=== PATIENT | male | born 1960 | race Caucasian/White ===

== ENCOUNTER 2019-10-24 16:02 | Observation (INO) ==
[2019-10-24 17:12] LABS: Basophils # 0.1 K/mcL (0.0-0.2); Basophils % 0.7 %; Eosinophils # 0.1 K/mcL (0.0-0.6); Eosinophils % 1.2 %; Hematocrit 42.8 % (37.5-50.1); Hemoglobin 13.4 g/dL (12.9-16.9); Immature Granulocytes % 0.4 % (0-4); Lymphocytes # 1.6 K/mcL (0.6-4.6); Lymphocytes % 13.6 %; Mean Corpuscular HGB Conc 31.3 g/dL (31.6-35.5); Mean Corpuscular Hemoglobin 28.5 pg (28.0-33.3); Mean Corpuscular Volume 90.9 fL (83.0-100.0); Mean Platelet Volume 10.4 fL (9.4-12.4); Monocytes # 0.9 K/mcL (0.0-1.3); Monocytes % 7.5 %; Neutrophils # 8.7 K/mcL (1.6-8.9); Platelet Count 393 K/mcL (140-400); Red Blood Count 4.71 M/mcL (4.19-5.50); Segmented Neutrophils % 76.6 %; White Blood Count 11.4 K/mcL (4.3-11.1)
[2019-10-24 17:19] LABS: INR 1.3
[2019-10-24 17:22] LABS: Activated Partial Thrombo Time 32.8 Seconds (26.0-36.0)
[2019-10-24 17:34] LABS: Alanine Aminotransferase 24 Units/L (7-52); Albumin 3.8 g/dL (3.5-5.7); Albumin/Globulin Ratio 1.5 (1.1-2.2); Alkaline Phosphatase 65 Units/L (34-104); Aspartate Amino Transferase 15 Units/L (13-39); BUN/Creatinine Ratio 17 (6-26); Bilirubin,Total 0.6 mg/dL (0.3-1.0); Blood Urea Nitrogen 15 mg/dL (8-23); Calcium 8.7 mg/dL (8.6-10.3); Carbon Dioxide 27 mEq/L (23-29); Chloride 100 mEq/L (98-107); Globulin 2.5 g/dL (2.4-3.5); Glucose 112 mg/dL (70-105); Osmolality,Calculated 284 (280-300); Sodium 136 mEq/L (136-145); Total Protein 6.3 g/dL (6.4-8.9); Troponin I 0.14 ng/mL (< 0.04); eGFR For African Americans > 60 (> 60); eGFR For Non-African Americans > 60 (> 60)
[2019-10-24] MEDS ORDERED: *HR* Heparin 5,000 UNIT/ML VIAL IVP ONE (17:38)
[2019-10-24] MEDS ORDERED: *HR* Heparin 5,000 UNIT/ML VIAL IVP PRN (17:38)
[2019-10-24] MEDS ORDERED: *HR* Promethazine 25 MG/ML VIAL IVP PRN (17:42)
[2019-10-24] MEDS ORDERED: Mag Hydrox/Al Hydrox/Simeth 30 ML UDC PO PRN (17:42)
[2019-10-24] MEDS ORDERED: Acetaminophen 325 MG TABLET PO PRN (17:42)
[2019-10-24] MEDS ORDERED: MOM Conc 10 ML UD.LIQ PO PRN (17:42)
[2019-10-24] MEDS ORDERED: Ondansetron 4 MG/2 ML VIAL IVP PRN (17:42)
[2019-10-24] MEDS ORDERED: *HR* HYDROcodone/Acet 5/325 mg TABLET PO PRN (17:42)
[2019-10-24] MEDS ORDERED: Naloxone 0.4 MG/ML INJ IVP PRN (17:42)
[2019-10-24] MEDS ORDERED: Perflutren Lipid Microsphere 1.3 ML in 0.9 % Sodium Chloride 8.7 ML IVP PRN (17:44)
[2019-10-24 18:04] LABS: Heparin anti-factor XA UFH < 0.04 IU/mL (0.30-0.70)
[2019-10-24] MEDS ORDERED: Aspirin 325 MG TABLET PO ONE (19:00)
[2019-10-24] MEDS: Heparin 25,000 UNIT/250 ML D5W 25,000 UNIT/250 ML IV.SOLN IVC SCH (19:28)
[2019-10-24] MEDS: 0.9 % Sodium Chloride 1,000 ML IVC SCH (19:35)
[2019-10-24] MEDS: DilTIAZem SR (12hr) 60 MG CAP.ER.12H PO SCH (22:05)
[2019-10-25 02:31] LABS: Basophils # 0.1 K/mcL (0.0-0.2); Basophils % 0.9 %; Eosinophils # 0.2 K/mcL (0.0-0.6); Eosinophils % 1.7 %; Hematocrit 42.3 % (37.5-50.1); Hemoglobin 12.9 g/dL (12.9-16.9); Immature Granulocytes % 0.6 % (0-4); Lymphocytes # 1.9 K/mcL (0.6-4.6); Lymphocytes % 19.2 %; Mean Corpuscular HGB Conc 30.5 g/dL (31.6-35.5); Mean Corpuscular Volume 91.8 fL (83.0-100.0); Mean Platelet Volume 10.3 fL (9.4-12.4); Monocytes # 0.9 K/mcL (0.0-1.3); Monocytes % 9.4 %; Neutrophils # 6.7 K/mcL (1.6-8.9); Platelet Count 354 K/mcL (140-400); Red Blood Count 4.61 M/mcL (4.19-5.50); Red Cell Distribution Width 14.2 % (11.5-14.5); Segmented Neutrophils % 68.2 %; White Blood Count 9.8 K/mcL (4.3-11.1)
[2019-10-25 02:48] LABS: BUN/Creatinine Ratio 19 (6-26); Blood Urea Nitrogen 16 mg/dL (8-23); Calcium 8.7 mg/dL (8.6-10.3); Carbon Dioxide 26 mEq/L (23-29); Chloride 102 mEq/L (98-107); Chol/HDL Ratio 5.9 (0-4.9); Cholesterol 159 mg/dL (< 200); Glucose 103 mg/dL (70-105); HDL Cholesterol 27 mg/dL (40-59); LDL Cholesterol,Calculated 113 mg/dL (< 100); Magnesium 2.3 mg/dL (1.6-2.6); Osmolality,Calculated 285 (280-300); Phosphorous 4.2 mg/dL (2.7-4.5); Potassium 4.3 mEq/L (3.5-5.1); Sodium 137 mEq/L (136-145); Triglycerides 94 mg/dL (< 150); eGFR For African Americans > 60 (> 60); eGFR For Non-African Americans > 60 (> 60)
[2019-10-25] MEDS: *HR* Heparin 5,000 UNIT/ML VIAL IVP PRN ×2 (02:50→17:39)
[2019-10-25 03:02] LABS: Thyroid Stimulating Hormone 2.828 mcIU/mL (0.340-5.600)
[2019-10-25] MEDS: 0.9 % Sodium Chloride 1,000 ML IVC SCH (06:10)
[2019-10-25] MEDS: DilTIAZem SR (12hr) 60 MG CAP.ER.12H PO SCH (07:43)
[2019-10-25] MEDS: carvediloL 25 MG TABLET PO SCH ×2 (14:02→21:27)
[2019-10-25] MEDS ORDERED: carvediloL 25 MG TABLET PO SCH (17:00)
[2019-10-25] MEDS: Heparin 25,000 UNIT/250 ML D5W 25,000 UNIT/250 ML IV.SOLN IVC SCH (17:38)
[2019-10-26 00:43] LABS: Basophils # 0.1 K/mcL (0.0-0.2); Basophils % 0.6 %; Eosinophils # 0.2 K/mcL (0.0-0.6); Hemoglobin 12.4 g/dL (12.9-16.9); Immature Granulocytes % 0.2 % (0-4); Lymphocytes % 19.9 %; Mean Corpuscular Hemoglobin 29.3 pg (28.0-33.3); Mean Corpuscular Volume 94.6 fL (83.0-100.0); Mean Platelet Volume 10.6 fL (9.4-12.4); Monocytes # 0.9 K/mcL (0.0-1.3); Monocytes % 8.8 %; Platelet Count 299 K/mcL (140-400); Red Blood Count 4.23 M/mcL (4.19-5.50); Red Cell Distribution Width 14.3 % (11.5-14.5); Segmented Neutrophils % 68.5 %; White Blood Count 10.2 K/mcL (4.3-11.1)
[2019-10-26 01:03] LABS: Blood Urea Nitrogen 15 mg/dL (8-23); Carbon Dioxide 27 mEq/L (23-29); Chloride 103 mEq/L (98-107); Potassium 4.3 mEq/L (3.5-5.1); Sodium 137 mEq/L (136-145)
[2019-10-26 01:04] LABS: BUN/Creatinine Ratio 18 (6-26); Calcium 8.4 mg/dL (8.6-10.3); Glucose 117 mg/dL (70-105); Magnesium 2.3 mg/dL (1.6-2.6); Osmolality,Calculated 286 (280-300); Phosphorous 3.9 mg/dL (2.7-4.5); eGFR For African Americans > 60 (> 60); eGFR For Non-African Americans > 60 (> 60)
[2019-10-26] MEDS: Regadenoson 0.4 MG/5 ML SYRINGE IVP ONE ×2 (08:05→08:26)
[2019-10-26] MEDS: carvediloL 25 MG TABLET PO SCH ×2 (08:36→16:24)
[2019-10-26] MEDS ORDERED: Aminoglycoside Consult 1 EACH MC ONE (11:28)
[2019-10-26] MEDS ORDERED: 0.9 % Sodium Chloride 2,000 ML ONE (12:16)
[2019-10-26] MEDS ORDERED: ISOVUE-370 200 ML INFUS..BTL ONE (12:16)
[2019-10-26] MEDS ORDERED: *HR* Heparin 10,000 UNIT/10 ML VIAL ONE (12:16)
[2019-10-26] MEDS ORDERED: Nitroglycerin 1,000 MCG/10 ML VIAL IV ONE (12:16)
[2019-10-26] MEDS ORDERED: Heparin 1,000 UNITS/500 mL 500 ML ONE (12:16)
[2019-10-26] MEDS ORDERED: *HR* Midazolam HCl 2 MG/2 ML VIAL ONE (12:45)
[2019-10-26] MEDS ORDERED: *HR* FentaNYL (PF) 100 MCG/2 ML VIAL ONE (12:45)
[2019-10-26] MEDS: Heparin 25,000 UNIT/250 ML D5W 25,000 UNIT/250 ML IV.SOLN IVC SCH (14:56)
[2019-10-26] MEDS ORDERED: Warfarin perPT PO PRN (18:00)
[2019-10-26] MEDS ORDERED: *HR* Warfarin 5 MG TABLET PO ONE (18:00)
[2019-10-27 06:43] LABS: INR 1.3; Prothrombin Time 14.5 Seconds (9.4-12.1)
[2019-10-27 07:03] LABS: BUN/Creatinine Ratio 17 (6-26); Blood Urea Nitrogen 15 mg/dL (8-23); Calcium 8.6 mg/dL (8.6-10.3); Carbon Dioxide 28 mEq/L (23-29); Chloride 99 mEq/L (98-107); Glucose 110 mg/dL (70-105); Osmolality,Calculated 279 (280-300); Potassium 4.2 mEq/L (3.5-5.1); Sodium 134 mEq/L (136-145); eGFR For African Americans > 60 (> 60); eGFR For Non-African Americans > 60 (> 60)
[2019-10-27] MEDS: carvediloL 25 MG TABLET PO SCH (07:23)
[2019-10-27 07:50] VITALS: BP 139/76
[2019-10-27] MEDS ORDERED: lisinopriL 5 MG TABLET PO SCH (09:00)
[2019-10-27] MEDS ORDERED: Aspirin 81 MG TAB.CHEW PO SCH (09:15)
== END 2019-10-27 11:29 | disposition home or self-care (01) ==
LOC: EMEROOARM 16:02 → 2ANU 16:02 → SUATTDRO 19:23 → 2ANU 19:56
PROVIDERS: ADMIT Internal Medicine; ATTEND Family Medicine

== ENCOUNTER 2019-12-27 14:33 | Inpatient (IN) ==
[2019-12-27 15:39] LABS: Bilirubin,Urine Negative (Negative); Blood,Urine Negative (Negative); Clarity,Urine Clear (Clear); Color,Urine Light-Yellow (Yellow); Glucose,Urine (UA) Normal (Normal); Ketones,Urine Negative (Negative); Leukocyte Esterase,Urine Negative (Negative); Nitrite,Urine Negative (Negative); PH,Urine 5.5 pH Units (5.0-8.0); Protein,Urine Negative (Neg-Trace); Specific Gravity,Urine 1.018 (1.010-1.025); Urobilinogen,Urine Normal (Normal)
[2019-12-27 15:44] LABS: Basophils # 0.1 K/mcL (0.0-0.2); Basophils % 0.5 %; Eosinophils # 0.8 K/mcL (0.0-0.6); Eosinophils % 6.3 %; Hematocrit 38.1 % (37.5-50.1); Hemoglobin 11.3 g/dL (12.9-16.9); Immature Granulocytes % 0.5 % (0-4); Lymphocytes # 0.9 K/mcL (0.6-4.6); Lymphocytes % 6.5 %; Mean Corpuscular HGB Conc 29.7 g/dL (31.6-35.5); Mean Corpuscular Hemoglobin 25.4 pg (28.0-33.3); Mean Corpuscular Volume 85.6 fL (83.0-100.0); Mean Platelet Volume 10.4 fL (9.4-12.4); Monocytes # 1.4 K/mcL (0.0-1.3); Monocytes % 10.3 %; Platelet Count 309 K/mcL (140-400); Red Blood Count 4.45 M/mcL (4.19-5.50); Red Cell Distribution Width 15.9 % (11.5-14.5); Segmented Neutrophils % 75.9 %; White Blood Count 13.2 K/mcL (4.3-11.1)
[2019-12-27 15:56] LABS: Activated Partial Thrombo Time 42.1 Seconds (26.0-36.0); Prothrombin Time 34.2 Seconds (9.4-12.1)
[2019-12-27 16:10] LABS: Alanine Aminotransferase 18 Units/L (7-52); Albumin 3.4 g/dL (3.5-5.7); Albumin/Globulin Ratio 1.1 (1.1-2.2); Alkaline Phosphatase 179 Units/L (34-104); Aspartate Amino Transferase 14 Units/L (13-39); BUN/Creatinine Ratio 25 (6-26); Bilirubin,Direct 0.3 mg/dL (0.0-0.2); Bilirubin,Indirect 0.9 mg/dL (0.0-1.0); Bilirubin,Total 1.2 mg/dL (0.3-1.0); Blood Urea Nitrogen 20 mg/dL (8-23); Carbon Dioxide 31 mEq/L (23-29); Chloride 98 mEq/L (98-107); Globulin 3.2 g/dL (2.4-3.5); Glucose 102 mg/dL (70-105); Osmolality,Calculated 283 (280-300); Potassium 4.5 mEq/L (3.5-5.1); Sodium 135 mEq/L (136-145); Total Protein 6.6 g/dL (6.4-8.9); Troponin I 0.04 ng/mL (< 0.04); eGFR For African Americans > 60 (> 60); eGFR For Non-African Americans > 60 (> 60)
[2019-12-27] MEDS ORDERED: Aspirin 325 MG TABLET PO ONE (16:38)
[2019-12-27] MEDS ORDERED: Furosemide 40 MG/4 ML VIAL IVP ONE (16:38)
[2019-12-27] MEDS ORDERED: Ondansetron 4 MG/2 ML VIAL IVP PRN (17:04)
[2019-12-27] MEDS ORDERED: Naloxone 0.4 MG/ML INJ IVP PRN (17:04)
[2019-12-27] MEDS ORDERED: Albuterol 2.5 MG/3 ML NEBULIZER IH PRN (17:06)
[2019-12-27] MEDS ORDERED: Warfarin perPT PO PRN (18:00)
[2019-12-27] MEDS ORDERED: *HR* Warfarin 3 MG TABLET PO ONE (18:00)
[2019-12-27] MEDS: Azithromycin 250 MG TABLET PO SCH (20:03)
[2019-12-27] MEDS: carvediloL 25 MG TABLET PO SCH (20:03)
[2019-12-27] MEDS: predniSONE 20 MG TABLET PO SCH (20:03)
[2019-12-27 20:37] LABS: Adenovirus Not Detected (Not Detect); Bordetella Pertussis Not Detected (Not Detect); Chlamydophila pneumoniae Not Detected (Not Detect); Coronavirus 229E Not Detected (Not Detect); Coronavirus HKU1 Not Detected (Not Detect); Coronavirus NL63 Not Detected (Not Detect); Coronavirus OC43 Not Detected (Not Detect); Human Metapneumovirus Not Detected (Not Detect); Human Rhinovirus/Enterovirus Not Detected (Not Detect); Influenza A Subtype 2009 H1 Not Detected (Not Detect); Influenza B Not Detected (Not Detect); Mycoplasma pneumoniae Not Detected (Not Detect); Parainfluenza Virus 1 Not Detected (Not Detect); Parainfluenza Virus 2 Not Detected (Not Detect); Parainfluenza Virus 3 Not Detected (Not Detect); Parainfluenza Virus 4 Not Detected (Not Detect); Respiratory Syncytial Virus Not Detected (Not Detect); SARS-CoV-2 Not Detected (Not Detect)
[2019-12-27] MEDS: Furosemide 20 MG/2 ML VIAL IVP SCH (21:12)
[2019-12-27] MEDS: Albuterol 2.5 MG/3 ML NEBULIZER IH SCH ×2 (21:42→23:40)
[2019-12-28] MEDS: Albuterol 2.5 MG/3 ML NEBULIZER IH SCH ×6 (03:46→23:59)
[2019-12-28 06:37] LABS: Basophils % 0.3 %; Eosinophils % 0.4 %; Hematocrit 35.3 % (37.5-50.1); Hemoglobin 10.4 g/dL (12.9-16.9); Immature Granulocytes % 0.4 % (0-4); Lymphocytes # 0.4 K/mcL (0.6-4.6); Lymphocytes % 5.5 %; Mean Corpuscular HGB Conc 29.5 g/dL (31.6-35.5); Mean Corpuscular Hemoglobin 26.1 pg (28.0-33.3); Mean Corpuscular Volume 88.7 fL (83.0-100.0); Mean Platelet Volume 10.9 fL (9.4-12.4); Monocytes # 0.3 K/mcL (0.0-1.3); Monocytes % 3.4 %; Neutrophils # 7.2 K/mcL (1.6-8.9); Platelet Count 208 K/mcL (140-400); Red Blood Count 3.98 M/mcL (4.19-5.50); Red Cell Distribution Width 16.1 % (11.5-14.5)
[2019-12-28 06:51] LABS: BUN/Creatinine Ratio 30 (6-26); Blood Urea Nitrogen 19 mg/dL (8-23); Calcium 8.8 mg/dL (8.6-10.3); Carbon Dioxide 28 mEq/L (23-29); Chloride 97 mEq/L (98-107); Glucose 102 mg/dL (70-105); Osmolality,Calculated 278 (280-300); Potassium 4.4 mEq/L (3.5-5.1); Sodium 133 mEq/L (136-145); eGFR For African Americans > 60 (> 60); eGFR For Non-African Americans > 60 (> 60)
[2019-12-28 07:35] LABS: INR 3.1; Prothrombin Time 35.1 Seconds (9.4-12.1)
[2019-12-28] MEDS: carvediloL 25 MG TABLET PO SCH ×2 (09:23→16:52)
[2019-12-28] MEDS: lisinopriL 5 MG TABLET PO SCH (09:24)
[2019-12-28] MEDS: Furosemide 20 MG/2 ML VIAL IVP SCH (09:24)
[2019-12-28] MEDS: Azithromycin 250 MG TABLET PO SCH (09:24)
[2019-12-28] MEDS: Aspirin 81 MG TAB.CHEW PO SCH (09:24)
[2019-12-28] MEDS: Spironolactone 25 MG TABLET PO SCH (09:24)
[2019-12-28] MEDS: predniSONE 20 MG TABLET PO SCH (09:25)
[2019-12-28] MEDS: Furosemide 40 MG/4 ML VIAL IVP SCH (16:53)
[2019-12-28] MEDS ORDERED: *HR* Warfarin 3 MG TABLET PO ONE ×2 (18:00)
[2019-12-29 01:36] LABS: Basophils % 0.1 %; Eosinophils # 0.2 K/mcL (0.0-0.6); Eosinophils % 1.5 %; Hemoglobin 10.8 g/dL (12.9-16.9); Immature Granulocytes % 0.6 % (0-4); Lymphocytes # 0.9 K/mcL (0.6-4.6); Lymphocytes % 6.8 %; Mean Corpuscular HGB Conc 30.9 g/dL (31.6-35.5); Mean Corpuscular Hemoglobin 25.8 pg (28.0-33.3); Mean Corpuscular Volume 83.7 fL (83.0-100.0); Mean Platelet Volume 10.3 fL (9.4-12.4); Monocytes # 1.3 K/mcL (0.0-1.3); Monocytes % 10.5 %; Neutrophils # 10.1 K/mcL (1.6-8.9); Platelet Count 295 K/mcL (140-400); Red Blood Count 4.18 M/mcL (4.19-5.50); Red Cell Distribution Width 15.9 % (11.5-14.5); Segmented Neutrophils % 80.5 %
[2019-12-29 01:37] LABS: White Blood Count 12.6 K/mcL (4.3-11.1)
[2019-12-29 01:42] LABS: INR 3.6; Prothrombin Time 41.5 Seconds (9.4-12.1)
[2019-12-29 01:57] LABS: BUN/Creatinine Ratio 30 (6-26); Blood Urea Nitrogen 24 mg/dL (8-23); Calcium 8.8 mg/dL (8.6-10.3); Carbon Dioxide 30 mEq/L (23-29); Chloride 95 mEq/L (98-107); Glucose 129 mg/dL (70-105); Osmolality,Calculated 282 (280-300); Potassium 4.2 mEq/L (3.5-5.1); Sodium 133 mEq/L (136-145); eGFR For African Americans > 60 (> 60); eGFR For Non-African Americans > 60 (> 60)
[2019-12-29] MEDS: Albuterol 2.5 MG/3 ML NEBULIZER IH SCH ×6 (03:16→23:52)
[2019-12-29] MEDS: Furosemide 40 MG/4 ML VIAL IVP SCH ×2 (05:35→16:07)
[2019-12-29] MEDS: carvediloL 25 MG TABLET PO SCH ×2 (08:20→16:07)
[2019-12-29] MEDS: Azithromycin 250 MG TABLET PO SCH (08:20)
[2019-12-29] MEDS: Spironolactone 25 MG TABLET PO SCH (08:21)
[2019-12-29] MEDS: lisinopriL 5 MG TABLET PO SCH (08:21)
[2019-12-29] MEDS: predniSONE 20 MG TABLET PO SCH (08:21)
[2019-12-29] MEDS: Aspirin 81 MG TAB.CHEW PO SCH (08:21)
[2019-12-30] MEDS: Albuterol 2.5 MG/3 ML NEBULIZER IH SCH ×3 (03:38→11:18)
[2019-12-30 05:04] LABS: INR 2.7; Prothrombin Time 30.6 Seconds (9.4-12.1)
[2019-12-30] MEDS: Furosemide 40 MG/4 ML VIAL IVP SCH (05:07)
[2019-12-30] MEDS: Spironolactone 25 MG TABLET PO SCH (07:56)
[2019-12-30] MEDS: lisinopriL 5 MG TABLET PO SCH (07:56)
[2019-12-30] MEDS: predniSONE 20 MG TABLET PO SCH (07:56)
[2019-12-30] MEDS: carvediloL 25 MG TABLET PO SCH (07:57)
[2019-12-30] MEDS: Aspirin 81 MG TAB.CHEW PO SCH (07:57)
[2019-12-30] MEDS ORDERED: Azithromycin 250 MG TABLET PO SCH (09:00)
[2019-12-30 11:15] VITALS: BP 119/77
== END 2019-12-30 13:00 | disposition home or self-care (01) | DRG 292 ==
LOC: 2ANU 14:33 → EMEROOARM 14:33 → SUATTDRO 19:32 → 2ANU 21:11
PROVIDERS: ADMIT Internal Medicine; ATTEND Internal Medicine

== ENCOUNTER 2022-01-22 15:31 | Observation (INO) ==
[2022-01-22] MEDS ORDERED: Iopamidol - 370 500 ML MLS IVP ONE (17:33)
[2022-01-22 17:50] LABS: Basophils # 0.1 K/mcL (0.0-0.2); Basophils % 0.4 %; Eosinophils # 0.2 K/mcL (0.0-0.6); Eosinophils % 1.3 %; Hematocrit 46.1 % (37.5-50.1); Hemoglobin 13.8 g/dL (12.9-16.9); Immature Granulocytes % 0.4 % (0-4); Lymphocytes # 1.6 K/mcL (0.6-4.6); Lymphocytes % 13.4 %; Mean Corpuscular HGB Conc 29.9 g/dL (31.6-35.5); Mean Corpuscular Volume 86.8 fL (83.0-100.0); Mean Platelet Volume 10.2 fL (9.4-12.4); Monocytes # 1.1 K/mcL (0.0-1.3); Monocytes % 9.7 %; Neutrophils # 8.7 K/mcL (1.6-8.9); Platelet Count 296 K/mcL (140-400); Red Blood Count 5.31 M/mcL (4.19-5.50); Red Cell Distribution Width 14.9 % (11.5-14.5); Segmented Neutrophils % 74.8 %; White Blood Count 11.6 K/mcL (4.3-11.1)
[2022-01-22 18:08] LABS: Potassium 4.6 mEq/L (3.5-5.1)
[2022-01-22 18:10] LABS: INR 3.1; Prothrombin Time 33.8 Seconds (9.4-12.1)
[2022-01-22 18:13] LABS: Activated Partial Thrombo Time 43.7 Seconds (26.0-36.0)
[2022-01-22] MEDS ORDERED: *HR* OxyCODONE Immed Rel 5 MG TABLET PO PRN (19:45)
[2022-01-22] MEDS ORDERED: Melatonin 3 MG TABLET PO PRN (19:45)
[2022-01-22] MEDS ORDERED: Acetaminophen 325 MG TABLET PO PRN (19:45)
[2022-01-22] MEDS ORDERED: *HR* HYDROcodone/Acet 5/325 mg TABLET PO PRN (19:45)
[2022-01-22] MEDS ORDERED: Naloxone 0.4 MG/ML INJ IVP PRN (19:45)
[2022-01-22] MEDS ORDERED: Ondansetron 4 MG/2 ML VIAL IVP PRN (19:45)
[2022-01-23 05:17] LABS: Basophils # 0.1 K/mcL (0.0-0.2); Basophils % 0.4 %; Eosinophils # 0.2 K/mcL (0.0-0.6); Eosinophils % 1.6 %; Hematocrit 44.9 % (37.5-50.1); Hemoglobin 13.5 g/dL (12.9-16.9); Immature Granulocytes % 0.3 % (0-4); Lymphocytes # 1.4 K/mcL (0.6-4.6); Lymphocytes % 11.5 %; Mean Corpuscular HGB Conc 30.1 g/dL (31.6-35.5); Mean Corpuscular Hemoglobin 25.7 pg (28.0-33.3); Mean Corpuscular Volume 85.5 fL (83.0-100.0); Mean Platelet Volume 10.7 fL (9.4-12.4); Monocytes # 1.1 K/mcL (0.0-1.3); Monocytes % 9.7 %; Platelet Count 291 K/mcL (140-400); Red Blood Count 5.25 M/mcL (4.19-5.50); Red Cell Distribution Width 14.8 % (11.5-14.5); Segmented Neutrophils % 76.5 %; White Blood Count 11.7 K/mcL (4.3-11.1)
[2022-01-23 05:26] LABS: Prothrombin Time 32.9 Seconds (9.4-12.1)
[2022-01-23 05:39] LABS: BUN/Creatinine Ratio 25 (6-26); Blood Urea Nitrogen 18 mg/dL (8-23); Calcium 10.9 mg/dL (8.6-10.3); Carbon Dioxide 27 mEq/L (23-29); Chloride 101 mEq/L (98-107); Glucose 80 mg/dL (70-105); Magnesium 2.2 mg/dL (1.6-2.6); Osmolality,Calculated 283 (280-300); Phosphorous 3.1 mg/dL (2.7-4.5); Potassium 4.4 mEq/L (3.5-5.1); Sodium 136 mEq/L (136-145)
[2022-01-25 14:59] VITALS: BP 127/84; PULSE 85; TEMP 97.8; O2SAT 91
== END 2022-01-25 20:37 | disposition short-term general hospital (02) ==
LOC: EMEROOARM 15:31 → 3ANU 15:31 → SUATTDRO 20:11 → 3ANU 21:35
PROVIDERS: ADMIT Internal Medicine; ATTEND Internal Medicine